=== PATIENT | male | born 1955 | race Caucasian/White ===

== ENCOUNTER 2023-01-03 08:47 | Emergency (ER) | payer OTHER ==
[~2023-01-03] VITALS: Ht 188 cm; Wt 87.1 kg
[2023-01-03 08:55] VITALS: BP_SYST 171; PULSE 120; RESP 22; TEMP 98.3; O2SAT 98
[2023-01-03] MEDS ORDERED: IBUP-1971 PO (10:41)
[2023-01-03] MEDS ORDERED: TRAM50TA2 PO (10:41)
[2023-01-03] MEDS ORDERED: IBUPROFEN 800 MG TABLET PO ONE (11:00)
[2023-01-03 11:57] VITALS: BP_SYST 171; PULSE 105; RESP 24; TEMP 98.3; O2SAT 98
== END 2023-01-03 11:16 | disposition home or self-care (01) ==
LOC: SED 08:47
DX: S93.491A Sprain of other ligament of right ankle, initial encounter (principal); Z79.899 Other long term (current) drug therapy; X50.0XXA Overexertion from strenuous movement or load, initial encounter; Y93.89 Activity, other specified; Y92.89 Other specified places as the place of occurrence of the external cause; Y99.8 Other external cause status
CPT/HCPCS: 99283